=== PATIENT | male | born 1955 | race Caucasian/White ===

== ENCOUNTER → 2016-08-16 | Outpatient (CLI) | payer BC ==
[~2016-08-16] MED LIST: ASCO500C16 PO; ASPI81TA84 PO; BENA1TAB73 PO; CITA20TA17 PO; DOXY100C PO; FENO145T10 PO; HYDR-4074 PO; LYSI500T3 PO; PRAV40TA44 PO; VITA1CAP PO
--- NOTE | 2016-08-16 10:54 | DI ---
Indication: ITS.REASON: R41.3 MEMORY LOSS PROCEDURE: CT HEAD W/O CONTRAST: Encounter: Initial Comparison: None Technique: Axial CT images through the head were performed without contrast. Iterative Reconstruction dose reducing technique was utilized. FINDINGS: The ventricles are of normal size, shape, and contour for the patient's age. The brainstem, cerebellum, and cerebral hemispheres have a normal morphology and CT attenuation. There is no evidence of midline displacement. No hemorrhage, signs of acute territorial stroke, mass effect, mass lesions, or edema is evident. The visualized portions of the skull base, midface, and calvarium demonstrate no abnormality. The paranasal sinuses are well aerated and free of significant disease. The tympanic and mastoid cavities appear normal. IMPRESSION: No acute intracranial abnormality or hemorrhage. Normal appearance of the brain for age. .
== END ==
LOC: IMA 09:55
PROVIDERS: ATTEND Nurse Practitioner Family
DX: R41.3 Other amnesia (principal)